=== PATIENT | male | born 1970 | race Caucasian/White ===

== ENCOUNTER 2020-06-06 10:14 | Outpatient (REF) | payer OTHER, SELFPAY ==
[2020-06-06 11:35] LABS: Alanine Aminotransferase 28 U/L (0-40); Albumin Level 4.2 g/dL (3.5-5.0); Alkaline Phosphatase 62 U/L (39-117); Anion Gap 10 (12-20); Aspartate Amino Transferase 29 U/L (5-37); Bilirubin Total 1.2 mg/dL (0.0-1.0); Blood Urea Nitrogen 15 mg/dL (9-16); Calcium 9.1 mg/dL (8.4-10.2); Carbon Dioxide 33 mmol/L (22-29); Chloride 103 mmol/L (96-108); Cholesterol 184 mg/dL; Estimated Glomerular Filt Rate > 60; Glucose Fasting 85 mg/dL (60-99); HDL Cholesterol 64 mg/dL; LDL Cholesterol Calculated 107 mg/dl; Potassium 4.8 mmol/l (3.3-5.1); Sodium 141 mmol/L (135-145); Total Protein 6.7 g/dL (6.5-8.0); Triglycerides 69 mg/dL
[2020-06-06 11:48] LABS: PSA,Total (Free>4and<10) 0.89 ng/mL (0.00-4.00); Vitamin D 25-OH Total 21.6 ng/mL (>30)
== END 2020-06-06 10:15 | disposition home or self-care (01) ==
LOC: HO.LAB 10:14
PROVIDERS: PCP Internal Medicine; Referring Provider Internal Medicine; Visit Provider Internal Medicine
DX: E78.00 Pure hypercholesterolemia, unspecified (principal); E55.9 Vitamin D deficiency, unspecified; Z20.828 Contact with and (suspected) exposure to other viral communicable diseases
CPT/HCPCS: 36415; 80053; 80061; 82306; 84153; 87635

== ENCOUNTER 2020-06-09 07:12 | Outpatient (REF) | payer OTHER, SELFPAY ==
[2020-06-09 08:10] LABS: COVID-19 Test Negative (Negative)
== END 2020-06-09 07:13 | disposition home or self-care (01) ==
LOC: HO.LAB 07:12
PROVIDERS: PCP Internal Medicine; Visit Provider Internal Medicine
DX: Z20.828 Contact with and (suspected) exposure to other viral communicable diseases (principal)
CPT/HCPCS: 36415; 87635

== ENCOUNTER → 2021-01-22 11:35 | Outpatient (REF) | payer OTHER, SELFPAY ==
--- NOTE | 2021-01-22 11:37 | CA_ITS ---
Transthoracic Echocardiogram Patient (Last, First, Middle): Js Givens, Gender: Male Date of : 1970 Age: 50 Procedure Date: 01/22/2021 Procedure Type: Transthoracic Echocardiogram Location: OP Height: 180.34 cm Weight: 74.39 kg BSA: 1.94 m2 Heart Rate: bpm BP: 104 / 70 mmHg Health Counselor: Referring MD: Kalen Mendosa MD Machinery Rigger: Kalen Mendosa MD Symptoms: R60.0 - Localized edema Study Quality: Good ECG Rhythm: Sinus Conclusions: - Essentially normal study Findings Left Ventricle Normal left ventricular size, thickness, and systolic function. The visually estimated ejection fraction is between 60-65%. Diastolic function is normal for age. Right Ventricle Normal right ventricular cavity size and systolic function. Atria Both atria are normal in size. There is no evidence of interatrial shunt. Aortic Valve Normal aortic valve structure and function. There is no aortic valve stenosis. There is no aortic valve regurgitation. Mitral Valve Normal mitral valve structure and function. There is trace mitral valve regurgitation. There is no mitral valve stenosis. Pulmonic Valve The pulmonic valve is likely normal. There is trace pulmonic valve regurgitation. Tricuspid Valve Normal tricuspid valve structure. There is trace tricuspid valve regurgitation. The right ventricular systolic pressure is normal. The right ventricular systolic pressure is 27 mmHg. Normal right atrial pressure. There is no evidence of pulmonary hypertension. Great Vessels All visible segments of the aorta are normal in size. The visualized portions of the pulmonary artery and branches are normal. Venous The inferior vena cava is normal in size and collapses greater than 50% with inspiration. Pericardium/Pleural There is no evidence of pericardial effusion. Prior Study Comparison No significant change compared to prior study dated: 07/27/2015. Measurements 2D Linear Measurements RVIDd: 2.55 RVIDd Index: 1.31 IVSd: 0.88 0.6-0.9/0.6-1.0 cm LVIDd: 5.12 3.9-5.3/4.2-5.9 cm LVIDd Index: 2.64 2.4-3.2/2.2-3.1 cm/m2 LVIDs: 3.22 2.0-3.6 cm LVPWd: 0.85 0.7-1.1 cm Ao Root: 2.60 2.1-3.5 cm LA Diam: 3.50 2.7-3.8/3.0-4.0 cm LAIDs Index: 1.80 1.5-2.3 cm/m2 LV Mass: 194.25 67-162/88-224 g LV Mass Index: 100.13 43-95/49-115 g/m2 LVOT Diam: 2.30 3.0+(-)1.3 cm 2D Systolic Function EF 4C: 59.00 >55% EF 2C: 73.30 >55% EF BiP: 67.10 >55% Mitral Valve MV Pk E: 0.53 MV PK A: 0.34 MV Decel Time: 393.00 E/A: 1.60 E'Lateral: 13.20 E'Medial: 9.79 E/E' Med: 5.40 E/E' Lat: 4.00 PHT: 115.00 MVA PHT: 1.91 Decel Hall: 1.34 Aortic Valve AoV Pk Paulo: 1.55 AoV Mn Paulo: 1.17 AoV VTI: 0.32 AoV Pk Grad: 10.00 Aov Mn Grad: 6.00 KONRAD Cont.VTI: 2.87 LVOT LVOT Pk Paulo: 1.14 LVOT Mn Paulo: 0.81 LVOT VTI: 0.22 LVOT Pk Grad: 5.00 LVOT Mn Grad: 3.00 LVOT Diam: 2.30 LVOT Area: 4.15 Diastolic Function MV Pk E: 0.53 MV Pk A: 0.34 E/A: 1.60 E'Medial: 9.79 E/E' Med: 5.40 E' Laterial: 13.20 E/E' Lat: 4.00 Tricuspid Valve TR Pk Paulo: 2.47 TR Pk Grad: 24.00 RA Press: 3.00 RVSP: 27.00 Great Vessels Aorta Ao Root-2D: 2.60 2.0-3.7 cm Ao Asc: 2.70 2.1-3.4 cm Ao Arch: 2.70 Updated in Other Vendor System with Status of Final Kalen Mendosa MD electronically signed on 01/22/2021 2:53:28 PM with status of Final
== END ==
LOC: HO.CARD 11:35
PROVIDERS: PCP Internal Medicine; Visit Provider Internal Medicine Cardiovascular Disease
DX: R60.0 Localized edema (principal)
CPT/HCPCS: 93306

== ENCOUNTER 2021-02-18 08:05 | Outpatient (REF) | payer OTHER, SELFPAY ==
[2021-02-18 09:24] LABS: Influenza A PCR NEGATIVE (Negative); Influenza B PCR NEGATIVE (Negative); Resp Syncy Virus RNA Qual PCR NEGATIVE (Negative); SARS COV2 PCR INHOUSE NEGATIVE (Negative)
== END 2021-02-18 08:06 | disposition home or self-care (01) ==
LOC: HO.LAB 08:05
PROVIDERS: PCP Internal Medicine; Visit Provider Internal Medicine
DX: Z20.822 Contact with and (suspected) exposure to COVID-19 (principal)
CPT/HCPCS: 0241U; 36415; C9803

== ENCOUNTER 2021-04-02 07:47 | Outpatient (REF) | payer OTHER, SELFPAY ==
[2021-04-02 08:48] LABS: Influenza A PCR NEGATIVE (Negative); Influenza B PCR NEGATIVE (Negative); Resp Syncy Virus RNA Qual PCR NEGATIVE (Negative); SARS COV2 PCR INHOUSE NEGATIVE (Negative)
== END 2021-04-02 07:48 | disposition home or self-care (01) ==
LOC: HO.LAB 07:47
PROVIDERS: PCP Internal Medicine; Visit Provider Internal Medicine
DX: Z20.822 Contact with and (suspected) exposure to COVID-19 (principal)
CPT/HCPCS: 0241U; 36415; C9803

== ENCOUNTER 2022-01-05 12:16 | Outpatient (REF) | payer OTHER, SELFPAY ==
[2022-01-05 12:43] LABS: COVID-19 Test Positive (Negative)
== END 2022-01-05 12:17 | disposition home or self-care (01) ==
LOC: HO.LAB 12:16
PROVIDERS: Visit Provider Internal Medicine
DX: Z20.822 Contact with and (suspected) exposure to COVID-19 (principal)
CPT/HCPCS: 87635; C9803

== ENCOUNTER 2022-03-11 07:16 | Outpatient (REF) | payer OTHER, SELFPAY ==
[2022-03-11 07:38] LABS: MANUAL DIFF FLAG NO
[2022-03-11 08:00] LABS: Basophils Percent Auto 0.6 % (0-2); Eosinophils Absolute Auto 0.1 X10*3/uL (0.0-0.4); Eosinophils Percent Auto 0.9 % (0-4); Hematocrit 42.2 % (42.0-52.0); Hemoglobin 13.5 g/dl (14.0-18.0); Imm Gran Abs Auto 0.01 X10*3/uL (0.00-0.03); Imm Gran Pct Auto 0.2 % (0.0-0.4); Lymphocytes Absolute Auto 2.2 X10*3/uL (1.2-4.9); Lymphocytes Percent Auto 40.9 % (20-40); Mean Corpuscular Hemoglobin 22.8 pg (27.0-33.0); Mean Corpuscular Volume 71.3 fL (80.0-98.0); Mean Platelet Volume 10.9 fL (9.4-12.4); Monocytes Absolute Auto 0.4 X10*3/uL (0.1-1.2); Monocytes Percent Auto 7.5 % (2-11); Neutrophils Absolute Auto 2.7 x10*3/uL (2.0-8.3); Neutrophils Percent Auto 49.9 % (45-73); Platelet Count 186 X10*3/uL (160-400); Red Blood Count 5.92 X10*6/uL (4.60-5.80); Red Cell Distribution Width 15.6 % (11.0-16.0); White Blood Count 5.3 X10*3/uL (4.8-10.8)
[2022-03-11 08:21] LABS: Alanine Aminotransferase 38 U/L (0-40); Albumin Level 4.2 g/dL (3.5-5.0); Alkaline Phosphatase 59 U/L (39-117); Anion Gap 11 (12-20); Aspartate Amino Transferase 33 U/L (5-37); Bilirubin Total 1.2 mg/dL (0.0-1.0); Blood Urea Nitrogen 20 mg/dL (9-16); Calcium 9.4 mg/dL (8.4-10.2); Carbon Dioxide 28 mmol/L (22-29); Chloride 105 mmol/L (96-108); Cholesterol 174 mg/dL; Estimated Glomerular Filt Rate > 60; Glucose Random 98 mg/dL (60-115); HDL Cholesterol 67 mg/dL; LDL Cholesterol Calculated 95 mg/dl; Potassium 5.1 mmol/L (3.3-5.1); Sodium 139 mmol/L (135-145); Total Protein 6.9 g/dL (6.5-8.0); Triglycerides 63 mg/dL
[2022-03-11 08:42] LABS: Free T4 (Free Thyroxine) 0.92 ng/dL (0.71-1.85); Thyroid Stimulating Hormone 1.44 uIU/mL (0.32-4.0); Vitamin D 25-OH Total 28.4 ng/mL (>30)
[2022-03-11 08:56] LABS: Folate 16.1 ng/mL (> or = 4.0); Vitamin B12 1557 pg/mL (200-900)
== END 2022-03-11 07:17 | disposition home or self-care (01) ==
LOC: HO.LAB 07:16
PROVIDERS: PCP Internal Medicine; Visit Provider Internal Medicine
DX: E78.00 Pure hypercholesterolemia, unspecified (principal)
CPT/HCPCS: 36415; 80053; 80061; 82306; 82607; 82746; 84439; 84443; 85025

== ENCOUNTER → 2022-09-26 14:14 | Outpatient (REF) | payer OTHER, SELFPAY ==
--- NOTE | 2022-09-26 14:13 | CA_ITS ---
Transthoracic Echocardiogram Patient (Last, First, Middle): Js Givens, Gender: Male Date of : 1970 Age: 52 Procedure Date: 09/26/2022 Procedure Type: Transthoracic Echocardiogram Location: OP Height: 180.34 cm Weight: 73.94 kg BSA: 1.93 m2 Heart Rate: bpm BP: 124 / 75 mmHg [place] Machine Operator Helper: TJ Referring MD: Angelia Sellers MD Symptoms: I48.91 - Unspecified atrial fibrillation Study Quality: Adequate ECG Rhythm: Sinus Conclusions: - The left ventricular systolic function is normal. The calculated ejection fraction is 64% by biplane method. - No obvious valvular pathology seen on this study. - The left atrium is mildly dilated. Findings Left Ventricle Normal left ventricular cavity size. There is normal left ventricular wall thickness. The left ventricular systolic function is normal. The calculated ejection fraction is 64% by biplane method. There is no evidence of regional wall motion abnormalities. Diastolic function is normal for age. LV peak GLS -19.8%. Right Ventricle Normal right ventricular cavity size and systolic function. Atria The left atrium is mildly dilated. LA ESV Index 35ml/m2. The right atrium is normal in size. Aortic Valve There is a normal trileaflet aortic valve. There is no aortic valve stenosis. There is no aortic valve regurgitation. Mitral Valve The mitral valve appears normal. There is trace mitral valve regurgitation. There is no mitral valve stenosis. Pulmonic Valve The pulmonic valve is likely normal. Tricuspid Valve Normal tricuspid valve structure. There is trace tricuspid valve regurgitation. There is no evidence of pulmonary hypertension. Great Vessels The asc aorta is normal in size. Venous The inferior vena cava is normal in size and collapses greater than 50% with inspiration. Pericardium/Pleural There is no evidence of pericardial effusion. Prior Study Comparison Changes noted compared to prior study dated: 01/22/2021. Slight increase in left atrial size. This change could also be technical. Recommendations, Care & Conclusions No obvious valvular pathology seen on this study. Measurements 2D Linear Measurements IVSd: 0.97 0.6-0.9/0.6-1.0 cm LVIDd: 4.82 3.9-5.3/4.2-5.9 cm LVIDd Index: 2.50 2.4-3.2/2.2-3.1 cm/m2 LVIDs: 3.33 2.0-3.6 cm LVPWd: 1.00 0.7-1.1 cm LA Diam: 3.30 2.7-3.8/3.0-4.0 cm LAIDs Index: 1.71 1.5-2.3 cm/m2 LV Mass: 209.54 67-162/88-224 g LV Mass Index: 108.57 43-95/49-115 g/m2 LVOT Diam: 2.20 3.0+(-)1.3 cm 2D Systolic Function EF 4C: 57.10 >55% EF 2C: 69.30 >55% EF BiP: 63.60 >55% Mitral Valve MV Pk E: 0.51 MV PK A: 0.38 MV Decel Time: 391.00 E/A: 1.40 E'Lateral: 12.00 E'Medial: 8.49 E/E' Med: 6.10 E/E' Lat: 4.30 PHT: 114.00 MVA PHT: 1.93 Decel Avery: 1.32 Aortic Valve AoV Pk Paulo: 1.23 AoV Mn Paulo: 0.77 AoV VTI: 0.26 AoV Pk Grad: 6.00 Aov Mn Grad: 3.00 KONRAD Cont.VTI: 2.88 LVOT LVOT Pk Paulo: 0.98 LVOT Mn Paulo: 0.56 LVOT VTI: 0.20 LVOT Pk Grad: 4.00 LVOT Mn Grad: 2.00 LVOT Diam: 2.20 LVOT Area: 3.80 Diastolic Function MV Pk E: 0.51 MV Pk A: 0.38 E/A: 1.40 E'Medial: 8.49 E/E' Med: 6.10 E' Laterial: 12.00 E/E' Lat: 4.30 Right Ventricle TAPSE (mm): 29.30 TVS' Paulo: 16.60 Tricuspid Valve TR Pk Paulo: 2.18 TR Pk Grad: 19.00 RA Press: 3.00 RVSP: 22.00 Great Vessels Aorta Sinus of Valsalva: 3.36 2.0-3.[address] [place]: 2.91 1.7-3.4 cm Ao Asc: 3.00 2.1-3.4 cm Updated in Other Vendor System with Status of Final Kelton Carmichael MD electronically signed on 09/26/2022 4:04:14 PM with status of Final
== END ==
LOC: HO.CARD 14:14
PROVIDERS: Visit Provider Internal Medicine
DX: I48.91 Unspecified atrial fibrillation (principal)
CPT/HCPCS: 93306; 93356

== ENCOUNTER → 2022-09-30 08:03 | Outpatient (REF) | payer OTHER, SELFPAY ==
--- NOTE | 2022-09-30 08:06 | CA_ITS ---
Acquisition Time: 2022-09-30 08:06:39 Total Exercise Time: 00:10:46 Test Indications: AFIB Medications: SEE CHART Protocol: KAILEE Max HR: 162 BPM 97% of Pred: 167 BPM Max BP: 182/070 mmHG Max Work Load: 12.9 METS Exercise stress test with exercise 10 min 46 sec of Kailee protocol, achieving 97% MPHR, 12.9 METs, without anginal symptoms, with isolated PVCs, with normotensive response to exercise, without EKG changes meeting criteria for ischemia. Test reviewed with Dr Carmichael. Referred By: Angelia Sellers Overread By: KULDEEP MONROY
== END ==
LOC: HO.CARD 08:03
PROVIDERS: Visit Provider Internal Medicine
DX: I48.91 Unspecified atrial fibrillation (principal)
CPT/HCPCS: 93017

== ENCOUNTER 2023-02-13 09:22 | Outpatient (REF) | payer OTHER, SELFPAY ==
--- NOTE | ~2023-02-13 | US_ITS ---
EXAMINATION: US ABDOMEN COMPLETE CLINICAL INFORMATION: R79.89 - Other specified abnormal findings of blood chemistry. COMPARISON: Ultrasound abdomen 02/07/2017. TECHNIQUE: Real-time imaging of the abdominal viscera. FINDINGS: PANCREAS: Pancreas is normal in size and contour and echogenicity. There is no pancreatic ductal distention or retroperitoneal effusion. ABDOMINAL AORTA: The proximal, mid, and distal segments are normal in caliber. INFERIOR VENA CAVA: Visualized portions are normal. LIVER: The liver is normal in size, contour, and with normal parenchymal echogenicity. There is a solitary 0.5 cm uniformly hyperechoic nodule central right lobe likely segment 6, not previously described. This is most likely a benign hemangioma and may be reassessed with targeted ultrasound in 6-12 months. There are no other hepatic parenchymal lesions. No intrahepatic biliary ductal dilatation. GALLBLADDER: Normal. The gallbladder is physiologically distended without evidence of stones, sludge, polyps, wall thickening or pericholecystic fluid. Negative sonographic Hodges's sign. COMMON BILE DUCT: Normal in caliber measuring 0.2 cm in diameter. No choledocholithiasis. RIGHT KIDNEY: Normal. No hydronephrosis. No renal calculi or focal parenchymal lesions. The kidney measures 10.8 cm in maximum dimension. LEFT KIDNEY: Normal. No hydronephrosis. No focal parenchymal lesions. The kidney measures 9.8 cm in maximum dimension. There are 2 specular echoes interpolar region under 3 mm possibly nonobstructing calculi. No posterior acoustic shadowing to confirm calculi. SPLEEN: Normal. The spleen measures 10.1 cm in maximum dimension. FREE FLUID: None. US/US abdomen complete IMPRESSION: -Probable small solitary hepatic hemangioma right hepatic lobe 0.5 cm, not previously described. This may be reassessed with ultrasound in 6-12 months. -No cholelithiasis or ductal dilatation. Normal pancreas. -Question tiny nonobstructing calculi interpolar left kidney. No hydronephrosis.
== END 2023-02-13 09:23 | disposition home or self-care (01) ==
LOC: HO.US 09:22
PROVIDERS: PCP Internal Medicine; Visit Provider Internal Medicine
DX: N20.0 Calculus of kidney (principal); R79.89 Other specified abnormal findings of blood chemistry
CPT/HCPCS: 76700

== ENCOUNTER 2023-02-13 11:30 | Day surgery (SDC) | payer OTHER, SELFPAY ==
--- NOTE | 2023-02-10 12:15 | HO.ANESPROP2 ---
Documented by User: Connie Preston NP 02/10/23 12:17 HPI - Anesthesia Eval Consult details Narrative: 52yo M for Colonoscopy [facility] Active Problems Active Problems: All Active Problems (Updated 02/06/23 @ 18:07 by Angelia Sellers MD) Renal calculi (Acute) Atrial fibrillation (Acute) Mediterranean anemia (Acute) Colon cancer screening (Acute) Leg edema (Acute) Annual physical exam (Acute) Hypercholesterolemia (Acute) Past Medical History Medical History (Updated 02/13/23 @ 10:46 by Angelia Sellers MD) Atrial fibrillation History of positive PPD History of renal calculi Hypercholesterolemia Mediterranean anemia Vitamin D deficiency Family History Family History (Updated 09/19/22 @ 15:04 by Angelia Sellers MD) Father Colon cancer Prostate cancer Skin cancer Hypertension Myocardial infarction Mother Chris's disease Maternal Grandfather Myocardial infarction Maternal Uncle Renal cancer Maternal Aunt Schizophrenia Surgical History Surgical History (Updated 02/13/23 @ 11:50 by Tari Schrader) H/O colonoscopy H/O lithotripsy History of adenoidectomy History of endoscopy Social History Social History (Updated 09/19/22 @ 15:05 by Angelia Sellers MD) Housing: House Alcohol intake: current Alcohol intake frequency: a few times a month Patient Tobacco Use Status: Never used Tobacco e-Cigarette/Vaping Use: Never Used Second Hand Smoke Exposure: No Use of substances other than those prescribed or required for medical reasons: No Are you DNR?: No Advance Directives: No Advance Directives Information Provided: Yes Current occupational status: employed Cognitive needs: No Hearing needs: No Vision needs: Yes Meds Allergies Allergy/AdvReac Type Severity Reaction Status Date / Time No Known Allergies Allergy Verified 02/13/23 11:51 [No Known Allergies*] Exam Exam Date and Time: February 10, 2023 1215 Assessment and Plan Assessment Anesthesia Assessment: Chart Reviewed Documented by User: Maria Zapata MD 02/13/23 13:58 [facility] Past Medical History Medical History (Updated 02/13/23 @ 10:46 by Angelia Sellers MD) Atrial fibrillation History of positive PPD History of renal calculi Hypercholesterolemia Mediterranean anemia Vitamin D deficiency Family History Family History (Updated 09/19/22 @ 15:04 by Angelia Sellers MD) Father Colon cancer Prostate cancer Skin cancer Hypertension Myocardial infarction Mother Chris's disease Maternal Grandfather Myocardial infarction Maternal Uncle Renal cancer Maternal Aunt Schizophrenia Family history of problems with anesthesia: No Surgical History Surgical History (Updated 02/13/23 @ 11:50 by Tari Schrader) H/O colonoscopy H/O lithotripsy History of adenoidectomy History of endoscopy History of Problems with Anesthesia: No Social History Social History (Updated 09/19/22 @ 15:05 by Angelia Sellers MD) Housing: House Alcohol intake: current Alcohol intake frequency: a few times a month Patient Tobacco Use Status: Never used Tobacco e-Cigarette/Vaping Use: Never Used Second Hand Smoke Exposure: No Use of substances other than those prescribed or required for medical reasons: No Are you DNR?: No Advance Directives: No Advance Directives Information Provided: Yes Current occupational status: employed Cognitive needs: No Hearing needs: No Vision needs: Yes Meds Allergies Allergy/AdvReac Type Severity Reaction Status Date / Time No Known Allergies Allergy Verified 02/13/23 11:51 [No Known Allergies*] Exam Airway Mallampati Class: I TM Dist: >3cm Neck ROM: Full Heart: rr Lungs: cta Assessment and Plan Assessment Anesthesia Assessment: Anesthesia Plan Discussed Final Anesthetic Review Family History of Problems with Anesthesia: No History of Problems with Anesthesia: No NPO: Yes ASA Class: II Final Preanesthetic Review: No Changes in Pt Med Stat, Meds/Allgs Chart Reviewed and Consent Obtained/Reviewed Patient Risk: Low Procedure Risk: Low Anesthetic Plan Anesthetic Plan: MAC: Disposition: Standard PACU
[2023-02-13 11:42] VITALS: BMI 22.3
[2023-02-13 11:48] VITALS: BP 122/80; PULSE 48; RESP 16; TEMP 36.8; O2SAT 100
[2023-02-13] MEDS: Lactated Ringers 1,000 ML 100 ML IVCONT (12:02)
[2023-02-13 14:46] VITALS: BP 92/53; PULSE 56; RESP 16; TEMP 36.1; O2SAT 97
--- NOTE | 2023-02-13 14:48 | PM.OP ---
Brief Operative Note Date of Service: 02/13/23 Pre-op diagnosis: Screening, Family history of colon cancer Post-op diagnosis: other (Mild sigmoid diverticulosis, small internal hemorrhoids) Procedure: Colonoscopy to the cecum Surgeon: Hamilton Basilio Anesthesia: MAC Was an Demographic Analyst used for this Procedure?: No Estimated blood loss (mL): 0 Pathology: none sent Condition: stable Disposition: PACU
[2023-02-13 15:01] VITALS: BP 104/68; PULSE 48; RESP 14; O2SAT 98
[2023-02-13 15:16] VITALS: BP 127/80; PULSE 52; RESP 16; O2SAT 100
[2023-02-13 15:30] VITALS: BP 124/83; PULSE 52; RESP 16; O2SAT 100
[2023-02-13 15:40] VITALS: PULSE 54; RESP 16; TEMP 36.5; O2SAT 100
--- NOTE | 2023-02-14 01:00 | OP_ITS ---
DATE OF SERVICE: 02/13/2023 SURGEON: Hamilton Basilio MD INDICATIONS: The patient presents for evaluation of colorectal cancer screening and family history of colon cancer. Full consent has been obtained from him for this, including risks of bleeding and perforation. PREOPERATIVE DIAGNOSIS: POSTOPERATIVE DIAGNOSIS: PROCEDURE PERFORMED: Colonoscopy to the cecum. ESTIMATED BLOOD LOSS: COMPLICATIONS: ANESTHESIA: Monitored anesthesia care. ASSISTANTS: SPECIMENS: PREOPERATIVE DIAGNOSES: Colorectal cancer screening and family history of colon cancer. POSTOPERATIVE DIAGNOSES: Colorectal cancer screening and family history of colon cancer, mild sigmoid diverticulosis, small internal hemorrhoids. DESCRIPTION OF PROCEDURE: The patient was placed in the left lateral decubitus position. The digital rectal exam revealed no abnormalities. The Olympus video pediatric colonoscope was entered into the rectum and advanced easily to the cecum. Once in the cecum, after copious irrigation and suctioning, the cecum was well visualized and appeared normal. The appendiceal orifice was visualized. The ileocecal valve appeared normal. There was transillumination of light deep in the right lower quadrant. The scope was then slowly withdrawn assessing all mucosal surfaces carefully. Preparation throughout the colon did become very good after a lot of irrigation and suctioning due to some retained liquid stool. However, once the irrigation and suctioning was completed, visualization became very good, and I did not visualize any sign of polyps, colitis, nor angiodysplasias. There were occasional diverticulae noted in the sigmoid colon. In the rectum, the scope was retroflexed visualizing internal hemorrhoids, but no other pathology. The rectal mucosa appeared normal. The scope was straightened and withdrawn from the patient. He tolerated the procedure well and was returned to the recovery area in stable condition. IMPRESSION: 1. Mild diverticulosis. 2. Small internal hemorrhoids. PLAN: Given his family history, I would recommend a repeat colonoscopy in 5 years. He will otherwise see me on a p.r.n. basis. MD MEDARDO Vang/MIO / [id number] MTDD
== END 2023-02-13 15:50 | disposition home or self-care (01) ==
PROVIDERS: PCP Internal Medicine; Visit Provider Internal Medicine
PROC: 0DJD8ZZ Inspection of Lower Intestinal Tract, Via Natural or Artificial Opening Endoscopic (ICD-10-PCS; CPT 45378; principal; 2023-02-13 12:40)
DX: Z12.11 Encounter for screening for malignant neoplasm of colon (principal); Z80.0 Family history of malignant neoplasm of digestive organs; K57.30 Diverticulosis of large intestine without perforation or abscess without bleeding; K64.8 Other hemorrhoids; E78.5 Hyperlipidemia, unspecified; D56.9 Thalassemia, unspecified; Z87.442 Personal history of urinary calculi
CPT/HCPCS: 45378; J2250

== ENCOUNTER 2023-09-25 15:05 | Outpatient (AMB) | payer OTHER, SELFPAY ==
[2023-09-25 15:06] VITALS: BP 138/80; PULSE 46; O2SAT 100; BMI 23.4
--- NOTE | 2023-09-25 15:06 | MHC.PC.OV ---
Vital Signs 09/25/23 15:06 Height 5 ft 11 in Weight 168 lb BMI 23.4 BP 138/80 Blood Pressure Location Lt brachial Position Sitting Pulse 46 L Pulse Source Pulse Oximeter Pulse Oximetry (%) 100 Oxygen Delivery Method Room Air Intake Visit Reasons: Annual exam Intake Note: Patient is here today for a physical. Consolidation Accountant Required: No Allergies No Known Allergies [No Known Allergies*] Allergy (Verified 09/25/23 15:07) Medication List - Last Reconciled 09/25/23 by Angelia Sellers MD Tobacco use date assessed: 09/25/23 Dental Screening Dental Screen Date: 09/25/23 Did you have a dental visit in the last 12 months?: No Did you have a dental problem in the last 6 months where you did not have access to dental care?: No HPI Annual exam HPI Details 52-year-old male with hypercholesterolemia atrial fibrillation coming in for physical exam last seen in September 2022. Patient is here for physical exam. Review of the notes colonoscopy done February 2023 diagnosis of mild diverticulosis with internal hemorrhoids. With family history advised colonoscopy repeat in 5 years ultrasound of the abdomen done in February 2023 showing small solitary hepatic hemangioma 0.5 cm advised reassessing in 6-12 months. There is a question of left renal calculi. Patient also had a stress test done in September 2022 without EKG changes echocardiogram done September 2022 The left ventricular systolic function is normal. The calculated ejection fraction is 64% by biplane method. - No obvious valvular pathology seen on this study. - The left atrium is mildly dilated. Otherwise patient has been active with no chest pains no palpitations. Aware and not surprised about the renal calculi as the patient has low oral fluid intake which the patient is correcting. Patient has not been taking the cholesterol medication and vitamin-D and would like to have the blood work done 1st. Patient also has some facial discoloration(hyper pigmentation 1 cm on the bilateral Eye area) in which patient will just call Dermatology. [facility] Medical History (Updated 09/25/23 @ 15:17 by Angelia Sellers MD) Mediterranean anemia History of positive PPD History of renal calculi Atrial fibrillation Hypercholesterolemia Vitamin D deficiency Surgical History (Updated 02/13/23 @ 11:50 by Tari Schrader) History of endoscopy H/O colonoscopy H/O lithotripsy History of adenoidectomy Family History (Updated 09/19/22 @ 15:04 by Angelia Sellers MD) Father Colon cancer Prostate cancer Skin cancer Hypertension Myocardial infarction Mother Chris's disease Maternal Grandfather Myocardial infarction Maternal Uncle Renal cancer Maternal Aunt Schizophrenia Social History (Updated 09/25/23 @ 15:24 by Angelia Sellers MD) Housing: House Alcohol intake: current Alcohol intake frequency: a few times a month Comment: once a month, 2 glasses of wine Patient Tobacco Use Status: Never used Tobacco e-Cigarette/Vaping Use: Never Used Second Hand Smoke Exposure: No Current occupational status: employed Cognitive needs: No Hearing needs: No Vision needs: Yes Questionnaire PHQ-9 Over the last 2 weeks, how often have you been bothered by any of the following problems? 1. Little interest or pleasure in doing things: not at all 2. Feeling down, depressed, or hopeless: not at all 3. Trouble falling or staying asleep, or sleeping too much: not at all 4. Feeling tired or having little energy: not at all 5. Poor appetite or overeating: not at all 6. Feeling bad about yourself - or that you are a failure or have let yourself or your family down: not at all 7. Trouble concentrating on things, such as reading the newspaper or watching television: not at all 8. Moving or speaking so slowly that other people could have noticed. Or the opposite - being so fidgety or restless that you have been moving around a lot more than usual: not at all 9. Thoughts that you would be better off or of hurting yourself in some way: not at all Total score: 0 Depression Screening Interpretation: Negative Depression Screening Done: Yes Source: Developed by Drs. Hamilton Clarke, Fabiana Junior, Brigido Mcdonnell and colleagues, with an educational [place] from [employer]. Thrive Questionnaire Date Thrive assessed: 09/25/23 I am a: Patient What is your living situation today?: I have a steady place to live Within the past 12 months, did the food you bought not last and you didn't have the money to get more?: Never true Within the past 12 months, did you worry whether your food would run out before you got money to buy more?: Never true Do you have trouble paying for medicines?: No Do you have trouble getting transportation to medical appointments?: No Do you have trouble paying your heating and electricity bill?: No Do you have trouble taking care of your child, family member or friend?: No Do you have trouble with day-to-day activities such as bathing, preparing meals, shopping, managing finances, etc.?: No Are you currently unemployed and looking for a job?: No Are you interested in more education?: No THRIVE Score: 0 AUDIT C Alcohol Use Questionnaire (AUDIT-C) 1. How often do you have a drink containing alcohol?: 2-4 times a month 2. How many drinks containing alcohol do you have on a typical day when you are drinking?: 1 or 2 3. How often do you have six or more drinks on one occasion?: Never Total Score: 2 ALBERT-7 AMB Questionnaire ALBERT-7 Date ALBERT - 7 assessed: 09/25/23 Feeling nervous, anxious, or on edge: 0 = Not at all Not being able to stop or control worryin = Not at all Worrying too much about different things: 0 = Not at all Trouble relaxin = Not at all Being so restless that it is hard to sit still: 0 = Not at all Becoming easily annoyed or irritable: 0 = Not at all Feeling afraid as if something awful might happen: 0 = Not at all Total ALBERT-7 score (0-4 normal; 5-9 mild; 10-14 moderate; 15-21 severe): 0 Source: Developed by Drs. Hamilton Clarke, Fabiana Junior, Brigido Mcdonnell and colleagues, with an educational [place] from [employer]. Review of Systems Const Denies poor appetite and Denies weakness Eyes Denies no additional complaints ENT Reports Normal hearing present, Denies dizziness, Denies nasal congestion, Denies tinnitus and Denies sore throat Card Denies chest pain, Denies syncope, Denies rapid heart rate and Denies dyspnea Resp Denies cough and Denies dyspnea GI Denies change in stool character, Reports constipation, Denies diarrhea, Denies nausea and Denies vomiting Denies dysuria and Denies urinary frequency Neuro Reports Normal hearing present, Denies confusion, Denies dizziness, Denies syncope and Denies weakness Psych Denies confusion Physical exam (Primary Care) Vital Signs: Last Vital Signs Pulse 46 L 09/25/23 15:06 BP 138/80 09/25/23 15:06 Pulse Ox 100 09/25/23 15:06 Oxygen Delivery Method Room Air 09/25/23 15:06 BMI result Body Mass Index 23.4 Tobacco/Smoking Status: Tobacco use Status Tobacco use date assessed 09/25/23 09/25/23 15:08 Patient Tobacco Use Status Never used Tobacco 09/25/23 15:24 e-Cigarette/Vaping Use Never Used 09/25/23 15:24 PHQ-9: PHQ-9 Score PHQ-9: Total score 0 09/25/23 15:18 Depression Screening Interpretation: Negative Thrive Assessment: Date of Thrive Assessment Date Thrive assessed 09/25/23 09/25/23 15:08 Const General: No confusion Orientation/consciousness: No confusion HENMT Head: Yes normocephalic Ears: external ears normal and TM's normal bilaterally Face and sinus: Yes normal facial exam Mouth: moist mucous membranes Throat: Yes tonsils normal Eyes Conjunctivae: conjunctivae normal Pupils: Equal, round and reactive pupils present and Pupil accommodation reflex normal Direct Ophthalmoscopy: normal light reflex Neck Neck: No lymphadenopathy Thyroid: Thyroid normal Chest Chest palpation & inspection: normal inspection of the chest Resp Effort & Inspection: normal respiratory effort and no audible wheezes Auscultation: clear to auscultation bilaterally, no crackles, no wheezes and lung sounds not diminished Cardio Rate: regular rate Rhythm: regular rhythm Peripheral pulses: radial pulses present and dorsalis pedis present GI Other: Colonoscopy February 2023 Palpation (GI): no masses Auscultation: normal bowel sounds and normoactive bowel sounds Rectal Exam - Male: Yes deferred Skin General skin exam: no rashes or lesions noted Rashes: no rashes Neuro General: No confusion Cranial nerves: Yes Equal, round and reactive pupils present and Yes Normal hearing present Cognition (Neuro): normal cognition Gait exam (Neuro): Normal gait present Motor exam (neuro): 5/5 motor strength present throughout Deep tendon reflexes (DTR's): Right brachioradialis reflex intensity grade: 2+, Left brachioradialis reflex intensity grade: 2+, Right patellar reflex intensity grade: 2+ and Left patellar reflex intensity grade: 2+ Extrem General: No edema Office Procedures Flu Questionnaire Does the patient have a severe egg allergy?: No Does the patient have severe life threatening allergies?: No Does the patient have a fever or illness today?: No Has the patient ever had Guillain-[place] Syndrome?: No Has the patient ever had any past reaction to a flu shot?: No Immunizations flu vacc [id number] 6mos up(PF) 60 mcg(15 mcgx4)/0.5 mL IM syringe Performing Provider: Angelia Sellers MD [facility] Administered by: HAWA Kahn on 09/25/23 15:37 Dose Route Admin Location Dispensed Lot Number Expiration Date NDC Contour Band Saw Operator Vertical 0.5 mL IM Left Deltoid 0.5 mL [id number] 03/03/24 [id number] [employer] VIS Given Date VIS Provided VIS Publication Date 09/25/23 Single Vaccine 21 Eligibility Eligibility Date Funding Source Not [facility] Eligible 09/25/23 Private Assessment and Plan Assessment & Plan (1) Annual physical exam: Code(s): Z00.00 - Encounter for general adult medical examination without abnormal findings (2) Atrial fibrillation: Comment: 2004 with cardioversion Code(s): I48.91 - Unspecified atrial fibrillation Plan: Continue to follow-up (3) Hypercholesterolemia: Code(s): E78.00 - Pure hypercholesterolemia, unspecified Plan: Avoid fried foods, chicken skin, eggs, butter margarine, pastries and meat. Be it pork or beef they have a lot of cholesterol LDL goal of less than 130 and triglyceride of less than 150. Patient on atorvastatin 10 mg once a day (4) Renal calculi: Comment: Februaryrobable small solitary hepatic hemangioma right hepatic lobe 0.5 cm, not previously described. This may be reassessed with ultrasound in 6-12 months. -No cholelithiasis or ductal dilatation. Normal pancreas. -Question tiny nonobstructing calculi interpolar left kidney. No hydronephrosis. Code(s): N20.0 - Calculus of kidney Plan: Question of tiny renal calculi left will request for follow-up ultrasound (5) Hepatic hemangioma: Comment: Februaryrobable small solitary hepatic hemangioma right hepatic lobe 0.5 cm, not previously described. This may be reassessed with ultrasound in 6-12 months. -No cholelithiasis or ductal dilatation. Normal pancreas. -Question tiny nonobstructing calculi interpolar left kidney. No hydronephrosis. Code(s): D18.03 - Hemangioma of intra-abdominal structures Plan: Follow-up ultrasound in this time Orders: Orders Vitamin D 25-OH Total Today D56.9 - Thalassemia, unspecified Thyroglobulin & Antibody Today I48.91 - Unspecified atrial fibrillation Thyroid Peroxidase Antibodies Today I48.91 - Unspecified atrial fibrillation Influenza [id number] Immunization Today Z23 - Encounter for immunization Coding Level of Care Code Est Pt Prev Care 40-64y([id number]) Diagnoses Annual physical exam Z00.00 Atrial fibrillation I48.91 Hypercholesterolemia E78.00 Renal calculi N20.0 Hepatic hemangioma D18.03
== END 2023-09-25 15:45 | disposition home or self-care (01) ==
PROVIDERS: Visit Provider Internal Medicine
DX: Z23 Encounter for immunization (principal); Z00.00 Encounter for general adult medical examination without abnormal findings; I48.91 Unspecified atrial fibrillation; E78.00 Pure hypercholesterolemia, unspecified; N20.0 Calculus of kidney; D18.03 Hemangioma of intra-abdominal structures
CPT/HCPCS: 90471; 90686; 99396

== ENCOUNTER → 2024-07-01 15:12 | Outpatient (BNVA) | payer OTHER, SELFPAY | PROVIDERS: PCP Internal Medicine; Visit Provider Psychiatry & Neurology Psychiatry ==

== ENCOUNTER 2024-09-30 13:52 | Outpatient (AMB) | payer OTHER, SELFPAY ==
--- NOTE | 2024-09-30 13:55 | A.OFFPC_ITS ---
Vital Signs 09/30/24 13:58 Height 5 ft 11 in Weight 170 lb 2 oz BMI 23.7 BP 110/76 Blood Pressure Location Lt brachial Position Sitting Pulse 55 Pulse Source Pulse Oximeter Temp 97.1 F Temp Source Skin Pulse Oximetry (%) 98 Oxygen Delivery Method Room Air Intake Visit Reasons: pe Intake Note: Patient is here today for a physical. Pleater Required: No Rubber Goods Inspector Tester: Not Required per policy Accompanied by: Self / Same As Patient Allergies No Known Allergies [No Known Allergies*] Allergy (Verified 09/30/24 13:58) Medication List - Last Reconciled 09/30/24 by Angeila Sellers MD No Known Home Meds Tobacco use date assessed: 09/30/24 Dental Screening Dental Screen Date: 09/30/24 Did you have a dental visit in the last 12 months?: Yes Did you have a dental problem in the last 6 months where you did not have access to dental care?: No Was dental information given to patient?: Patient has dentist HPI pe HPI Details The patient is a 54-year-old male presenting with concern regarding his ongoing health maintenance. The patient is not currently using atorvastatin as previously discussed, indicating periodic past usage but currently none for several months. He desires to reassess his need for this medication via blood work due to elapsed time since the last monitoring. A notable skin lesion was recently excised by dermatology, identified as precancerous but non-malignant, confirming the need for a follow-up excision for precautionary resection. The patient attributes excessive sun exposure without sunscreen to this dermatological concern and plans to adopt preventive measures. A family history of basal cell carcinoma from his father reinforces this preventive approach. Regarding his history of atrial fibrillation, the patient reports no recent episodes of palpitations, attributing improvement to weight loss and regular exercise. He acknowledges a previous BMI of 30, fluctuated down with improved diet and lifestyle habits. He has maintained good control through regular monitoring and denies any dizziness, shortness of breath, or worsening symptoms. The patient similarly reports a history of kidney stones, with the last occurrence self-resolving at home. He attributes increased hydration to prevention yet acknowledges past frequent recurrences. - Routine blood work requested due to ce ssation of atorvastatin - Encouraged adoption and consistent fermin lication of sunscreen to mitigate further dermatological risks - Patient monitors heart rhythm using a smartwatch; blood pressure maintained through healthy lifestyle - He stays active with frequent exercise including daily treadmill use and competitive tennis - Consumes alcohol sparingly, approximat preeti once a month - Updated colonoscopy completed February - Suggested repeated abdominal ultrasoun d due to past mild findings - Completed eye exam indicated no ongoin g vision issues, prior concerns of early glaucoma unsubstantiated - Engages in regular physical exercise, including treadmill and tennis - Consumes alcohol infrequently, once mo nthly - Reports a diet lean in milk, otherwise mitigated sugary drinks, prefers water - Active lifestyle includes hiking and u se of protective clothing like hats - Maintains employment necessitating tel emedicine, reducing patient contact - Cardiovascular: Denies dizziness, palp itations, shortness of breath - Respiratory: Denies shortness of breat h - Gastrointestinal: Denies difficulties in swallowing; reports normal bowel movements - Neurological: Denies dizziness, loss o f consciousness - Genitourinary: Denies dysuria, nocturi a - Musculoskeletal: Regular exercise with out reported discomfort - Abdominal ultrasound previously reveal ed mild dilation and presence of kidney stones - Ophthalmology assessment indicated nor mal results, without current indication of glaucoma PFSH Medical History (Updated 09/30/24 @ 14:07 by Angelia Sellers MD) Mediterranean anemia History of positive PPD History of renal calculi Atrial fibrillation Hypercholesterolemia Vitamin D deficiency Surgical History History of endoscopy H/O colonoscopy H/O lithotripsy History of adenoidectomy Family History (Updated 09/30/24 @ 13:57 by HAWA Arauz) Father Colon cancer Prostate cancer Skin cancer Hypertension Myocardial infarction Mother Chris's disease Maternal Grandfather Myocardial infarction Maternal Uncle Renal cancer Maternal Aunt Schizophrenia Other Mental health disorder Social History Housing: House Alcohol intake: current Alcohol intake frequency: a few times a month Comment: once a month, 2 glasses of wine Patient Tobacco Use Status: Never used Tobacco e-Cigarette/Vaping Use: Never Used Second Hand Smoke Exposure: No service: No Current occupational status: employed Cognitive needs: No Hearing needs: No Vision needs: Yes (Glasses) Questionnaire PHQ-9 Over the last 2 weeks, how often have you been bothered by any of the following problems? 1. Little interest or pleasure in doing things: not at all 2. Feeling down, depressed, or hopeless: not at all 3. Trouble falling or staying asleep, or sleeping too much: not at all 4. Feeling tired or having little energy: not at all 5. Poor appetite or overeating: not at all 6. Feeling bad about yourself - or that you are a failure or have let yourself or your family down: not at all 7. Trouble concentrating on things, such as reading the newspaper or watching television: not at all 8. Moving or speaking so slowly that other people could have noticed. Or the opposite - being so fidgety or restless that you have been moving around a lot more than usual: not at all 9. Thoughts that you would be better off or of hurting yourself in some way: not at all Total score: 0 Depression Screening Interpretation: Negative Depression Screening Done: Yes Source: Developed by Drs. Hamilton Clarke, Fabiana Junior, Brigido Mcdonnell and colleagues, with an educational brooklyn from [employer]. Thrive Questionnaire Date Thrive assessed: 09/28/24 I am a: Patient What is your living situation today?: I have a steady place to live Within the past 12 months, did the food you bought not last and you didn't have the money to get more?: Never true Within the past 12 months, did you worry whether your food would run out before you got money to buy more?: Never true Do you have trouble paying for medicines?: No Do you have trouble getting transportation to medical appointments?: No Do you have trouble paying your heating and electricity bill?: No Do you have trouble taking care of your child, family member or friend?: No Do you have trouble with day-to-day activities such as bathing, preparing meals, shopping, managing finances, etc.?: No Are you currently unemployed and looking for a job?: No Are you interested in more education?: No Please select the resources that you would like help with: None Currently or been in a relationship where the following occur: No concerns reported THRIVE Score: 0 AUDIT C Alcohol Use Questionnaire (AUDIT-C) 1. How often do you have a drink containing alcohol?: Monthly or less 2. How many drinks containing alcohol do you have on a typical day when you are drinking?: 1 or 2 3. How often do you have six or more drinks on one occasion?: Never Total Score: 1 ALBERT-7 AMB Questionnaire ALBERT-7 Date ALBERT - 7 assessed: 09/30/24 Feeling nervous, anxious, or on edge: 0 = Not at all Not being able to stop or control worryin = Not at all Worrying too much about different things: 0 = Not at all Trouble relaxin = Not at all Being so restless that it is hard to sit still: 0 = Not at all Becoming easily annoyed or irritable: 0 = Not at all Feeling afraid as if something awful might happen: 0 = Not at all Total ALBERT-7 score (0-4 normal; 5-9 mild; 10-14 moderate; 15-21 severe): 0 Source: Developed by Drs. Hamilton Clarke, Fabiana Junior, Brigido Mcdonnell and colleagues, with an educational brooklyn from [employer]. Review of Systems Const Denies poor appetite and Denies weakness Eyes Denies no additional complaints ENT Reports Normal hearing present, Denies dizziness, Denies nasal congestion, Denies tinnitus and Denies sore throat Card Denies chest pain, Denies syncope, Denies rapid heart rate and Denies dyspnea Resp Denies cough and Denies dyspnea GI Denies change in stool character, Reports constipation, Denies diarrhea, Denies nausea and Denies vomiting Denies dysuria and Denies urinary frequency Neuro Reports Normal hearing present, Denies confusion, Denies dizziness, Denies syncope and Denies weakness Psych Denies confusion Physical exam (Primary Care) Vital Signs: Last Vital Signs Temp 97.1 F 09/30/24 13:58 Pulse 55 09/30/24 13:58 BP 110/76 09/30/24 13:58 Pulse Ox 98 09/30/24 13:58 Oxygen Delivery Method Room Air 09/30/24 13:58 BMI result Body Mass Index 23.7 Tobacco/Smoking Status: Tobacco use Status Tobacco use date assessed 09/30/24 09/30/24 14:01 Patient Tobacco Use Status Never used Tobacco 09/30/24 14:01 e-Cigarette/Vaping Use Never Used 09/30/24 14:01 PHQ-9: PHQ-9 Score PHQ-9: Total score 0 09/30/24 14:01 Depression Screening Interpretation: Negative Thrive Assessment: Date of Thrive Assessment Date Thrive assessed 09/28/24 09/30/24 14:01 Currently or been in a relationship where the following occur: No concerns reported Const General: No confusion Orientation/consciousness: No confusion HENMT Head: Yes normocephalic Ears: external ears normal and TM's normal bilaterally Face and sinus: Yes normal facial exam Mouth: moist mucous membranes Throat: Yes tonsils normal Eyes Conjunctivae: conjunctivae normal Pupils: Equal, round and reactive pupils present and Pupil accommodation reflex normal Direct Ophthalmoscopy: normal light reflex Neck Neck: No lymphadenopathy Thyroid: Thyroid normal Chest Chest palpation & inspection: normal inspection of the chest Resp Effort & Inspection: normal respiratory effort and no audible wheezes Auscultation: clear to auscultation bilaterally, no crackles, no wheezes and lung sounds not diminished Cardio Rate: regular rate Rhythm: regular rhythm Peripheral pulses: radial pulses present and dorsalis pedis present GI Palpation (GI): no masses Auscultation: normal bowel sounds and normoactive bowel sounds Rectal Exam - Male: Yes deferred Skin General skin exam: no rashes or lesions noted Rashes: no rashes Neuro General: No confusion Cranial nerves: Yes Equal, round and reactive pupils present and Yes Normal hearing present Cognition (Neuro): normal cognition Gait exam (Neuro): Normal gait present Motor exam (neuro): 5/5 motor strength present throughout Deep tendon reflexes (DTR's): Right brachioradialis reflex intensity grade: 2+, Left brachioradialis reflex intensity grade: 2+, Right patellar reflex intensity grade: 2+ and Left patellar reflex intensity grade: 2+ Extrem General: No edema Coding Level of Care Code Est Pt Prev Care 40-64y(53675) Diagnoses Annual physical exam Z00.00 Atrial fibrillation I48.91 Mediterranean anemia D56.9 Hypercholesterolemia E78.00 Hepatic hemangioma D18.03 Assessment & Plan Assessment & Plan (1) Annual physical exam: Code(s): Z00.00 - Encounter for general adult medical examination without abnormal findings Category: Medical (2) Atrial fibrillation: Comment: 2004 with cardioversion Code(s): I48.91 - Unspecified atrial fibrillation Category: Medical (3) Mediterranean anemia: Code(s): D56.9 - Thalassemia, unspecified Category: Medical (4) Hypercholesterolemia: Code(s): E78.00 - Pure hypercholesterolemia, unspecified Category: Medical (5) Hepatic hemangioma: Comment: Februaryrobable small solitary hepatic hemangioma right hepatic lobe 0.5 cm, not previously described. This may be reassessed with ultrasound in 6-12 months. -No cholelithiasis or ductal dilatation. Normal pancreas. -Question tiny nonobstructing calculi interpolar left kidney. No hydronephrosis. Code(s): D18.03 - Hemangioma of intra-abdominal structures Category: Medical Plan - Order and review blood work to assess atorvastatin necessity - Coordinate repeat excision of previously identified precancerous lesion - Counseling on effective sun protection measures and familial cancer risk - Continuation of monitoring atrial fibrillation with wearable technology - Encouragement to sustain lifestyle changes contributing to heart health - Advise adequate hydration to prevent kidney stones recurrence - Arrange repeat abdominal ultrasound as a precautionary measure During our session, I reminded the patient about the importance of preventive care, including the use of sunscreen considering his family history of basal cell carcinoma and recent precancerous skin lesion excision. We agreed to continue monitoring the status of his atrial fibrillation using wearable technology while maintaining his active lifestyle to support cardiovascular health. Concerns about kidney stones were addressed, with instruction to uphold increased water intake. Further diagnostic blood work will be performed to evaluate the necessity of atorvastatin therapy. A follow-up ultrasound was arranged due to prior recommendations and findings. The patient was guided on episodic colorectal screening protocols consistent with his history. - Continue using sunscreen daily, especially during prolonged sun exposure - Maintain current exercise routine and a healthy diet - Monitor heart rhythm using smartwatch for any irregular episodes - Keep hydrated to help prevent further kidney stone formation - Follow the scheduled ultrasound and follow-up blood work appointments - Observe and report any new or unusual skin changes promptly - Discuss any sudden changes in symptoms or discomfort during the next medical review Orders: Orders US abdomen complete Today D18.03 - Hemangioma of intra-abdominal structures, R79.89 - Other specified abnormal findings of blood chemistry Complete Blood Count Auto Diff Today E78.00 - Pure hypercholesterolemia, unspecified Free T4 (Free Thyroxine) Today E78.00 - Pure hypercholesterolemia, unspecified Lipid Panel Today E78.00 - Pure hypercholesterolemia, unspecified Prostate Specific Antigen Scr Today E78.00 - Pure hypercholesterolemia, unspecified Comprehensive Met. Panel Today E78.00 - Pure hypercholesterolemia, unspecified Thyroid Stimulating Hormone Today E78.00 - Pure hypercholesterolemia, unspecified Vitamin B12 and Folate Today E78.00 - Pure hypercholesterolemia, unspecified
[2024-09-30 13:58] VITALS: BP 110/76; PULSE 55; TEMP 36.2; O2SAT 98; BMI 23.7
--- OUTSIDE RECORDS SUMMARY | 2024-09-30 18:29 | XMS_ITS | Clinical Summary ---
Author Organization [facility] Address [address] [place] [address] Care Team Providers Care Beater Room Supervisor Name Role Phone Unavailable Primary Care Provider Unavailabl e Social History Tobacco Use Types Packs/Day Years Used Date Smoking Tobacco: Never Assessed Sex and Gender Information Value Date Recorded Sex Assigned at Not on file Gender Identity Not on file Sexual Orientation Not on file Plan of Treatment Not on file
--- OUTSIDE RECORDS SUMMARY | 2024-09-30 18:29 | XMS_ITS | Clinical Summary ---
Author Organization [facility] Address [address] [place] [address] Care Team Providers Care Tugboat Operator Name Role Phone Unavailable Primary Care Provider Unavailabl e Allergies No known active allergies Medications No known medications Social History Tobacco Use Types Packs/Day Years Used Date Smoking Tobacco: Never Smokeless Tobacco: Never Alcohol Use Standard Drinks/Week Comments Never 0 (1 standard drink = 0.6 oz pur e alcohol) AUDIT-C Answer Date Recorded Q1: How often do you have a drink containing alc ohol? Never 06/21/2020 Q2: How many drinks containi ng alcohol do you have on a typical day when you are drinking? Not asked 06/21/2020 Q3: How often do you have six or more drinks on one occasion? Never 06/21/2020 Sex and Gender Information Value Date Recorded Sex Assigned at Not on file Gender Identity Not on file Sexual Orientation Not on file Last Filed Vital Signs Vital Sign Reading Time Taken Comments Blood Pressure 127/77 06/21/2020 9:57 AM EDT Pulse 60 06/21/2020 9:57 AM EDT Temperature 36.5 ??C (97.7 ??F) 06/21/2020 9:57 AM ED T Respiratory Rate 16 06/21/2020 9:57 AM EDT Oxygen Saturation 99% 06/21/2020 9:57 AM EDT Inhaled Oxygen Concentration - - Weight 73.5 kg (162 lb) 06/21/2020 9:57 AM EDT Height 180.3 cm (5' 11 ) 06/21/2020 9:57 AM EDT Body Mass Index 22.59 06/21/2020 9:57 AM EDT Plan of Treatment Health Maintenance Due Date Last Done Comments Hepatitis C Virus Screening 1969 HIV Screening 1982 DTaP/Tdap/Td Vaccines (1 - Tdap) 1988 Hepatitis B Vaccines (1 of 3 - 19+ 3-dose series) 1988 Colonoscopy 2014 Pneumococcal Vaccines 50+ (1 of 1 - PCV) 2019 Zoster (Shingles) Vaccine (1 of 2) 2019 Influenza Vaccine 04/04/2024 COVID-19 Vaccine (1 - 2023-2 5 season) 2024 Pneumococcal Vaccine: Pediat nicki (0-5 Years) and At-Risk Patients (6 to 49 Years) Aged Out No longer eligible b ased on patient's age to complete this topic
--- OUTSIDE RECORDS SUMMARY | 2024-09-30 18:29 | XMS_ITS ---
Author Name [facility] Organization Unknown Results Test Name/Text Value Interpretation Date Range Source [facility] GROSS DESCRIPTION Received in formalin. Dimensions: 3 x 3 x 1 mm, submitted in 1 cassette. Normal [id number] [facility] CLINICAL INFORMATION r/o KA vs verruca Normal [id number] [facility] Problems Problem Status Onset Date Problem Type Date of Resoluti on Source Hyperlipidemia active 2018-06-05 ProblemAct [facility] Immunizations Vaccine Date Source Lot Number Status COVID-19 mRNA (PFIZER) 01/26/2021 [facility] [id number] co mpleted COVID-19 mRNA (PFIZER) 01/05/2021 [facility] [id number] co mpleted
--- OUTSIDE RECORDS SUMMARY | 2024-09-30 18:29 | XMS_ITS | Patient Health Record ---
Author Organization [facility] Address [address] [place] [address] Care Team Providers Care Business Intelligence Analyst Name Role Phone Po Angelia LEACH Primary Care Provider Hamilton Mac [phone] ALLERGIES No Known Allergies REASON FOR REFERRAL No Information IMMUNIZATIONS Vaccine Route Administration Date Status Comme nts Influenza Unknown 12/09/2022 Refused SOCIAL HISTORY Tobacco Use: Social History Observation Description Date Details (start date - stop date) Never Smoker NA - NA Sex Assigned At : Social History Observation Description Sex Assigned At Unknown Tobacco Use/Smoking Question Answer Notes Patient is a nonsmoker Alcohol Screen Question Answer Notes Did you have a drink contain ing alcohol in the past year? Yes How often did you have a dri nk containing alcohol in the past year? Monthly or less (1 point) How many drinks did you have on a typical day when you were drinking in the past year? 1 or 2 drinks (0 point) How often did you have 6 or more drinks on one occasion in the past year? Never (0 point) Points 1 Interpretation Negative PROBLEMS Problem Type ICD Code Onset Dates Problem Status W/U Status Risk SNOMED Code Notes Problem Encounter for screening for malignant neoplasm of colon (Z12.11) Active confirmed 011248656 Problem Preprocedural examination (Z01.818) Active confirmed 320498590 Problem Family history of colon cancer (Z80.0) Active confirmed 227828544 Problem Diverticulosis of large intestine without perforation or abscess without bleeding (K57.30) Active confirmed Diverticul ar disease of colon (838947918) PLAN OF TREATMENT Future Test Test Name Order Date COLONOSCOPY 12/28/2017 COLONOSCOPY 12/09/2022 Insurance Providers Payer Name Payer Address Payer Phone Subscriber Number Group Number Insured Name Patient Relationship to Insured Coverage Start Date Coverage End Date [employer] [address] [address] [place] [address] [id number] [facility] Self - patient is the insured MEDICAL (GENERAL) HISTORY Medical History History ICD Code Denies VT,DM,CVA,Lung disease,renal dise ase A.fib - 2005--less then 24 hr Hx of kidney stone Hyperlipidemia Thalassemia--normal Hgb and normal Iron studies Negative screening colonoscopy in 02/2018 Surgical History Surgery Date(Month/Year) Tonsillectomy 1974
--- OUTSIDE RECORDS SUMMARY | 2024-09-30 18:29 | XMS_ITS | Clinical Summary ---
Author Organization [facility] Address [address] [place] [address] Care Team Providers Care Aerospace Medicine Physician Name Role Phone Angelia Sellers MD Primary Care Provider [phone] Allergies No known active allergies Medications atorvastatin (LIPITOR) 10 mg tablet Take 10 mg by mouth daily. Active Active Problems Problem Noted Date Diagnosed Date Hyperlipidemia 06/05/2018 Encounters Date Type Department Care Team Description 08/21/2024 11:30 AM EST [facility] Department of Dermatology [address] [place] [address] Alexei Small MD Neoplasm of unspecified behavior of bone, soft tissue, and skin (Primary Dx); Verruca vulgaris from Last 3 Months Immunizations Name Administration Dates Next Due COVID-19 mRNA (PFIZER) 01/26/2021,01/05/2021 Family History Medical History Relation Comments Basal cell carcinoma Father Relation Status Comments Father Social History Tobacco Use Types Packs/Day Years Used Date Smoking Tobacco: Never Smokeless Tobacco: Never Tobacco Cessation:Counseling Given: Not Answered Alcohol Use Standard Drinks/Week Comments Yes 0 (1 standard drink = 0.6 oz pur e alcohol) SOCIAL Sex and Gender Information Value Date Recorded Sex Assigned at Male 08/21/2024 11:34 AM EST Legal Sex Male 11:28 AM EDT Gender Identity Male 08/21/2024 11:34 AM EST Sexual Orientation Not on file Plan of Treatment Upcoming Encounters Date Type Department Care Team (Late st Contact Info) Description 10/07/2024 1:00 PM EST [facility] Visit [facility] Department of Dermatology [address] [place] [address] Alexei Small MD [address] [facility] [place] [place] [address] Health Maintenance Due Date Last Done Comments CT Colonography 1969 Colonoscopy 1969 Colorectal Cancer Screening 1969 FIT-DNA (Cologuard) 1969 FIT 1969 FOBT 1969 Flex Sigmoidoscopy - 5y 1969 HIV Screening 1969 DTaP,Tdap,and Td Vaccines (1 - Tdap) 1987 Hepatitis C Screening 1987 Hepatitis B Vaccines (1 of 3 - 19+ 3-dose series) 1988 Zoster Vaccines (1 of 2) 2019 COVID-19 Vaccine ( - 2023-2 5 season) 2024 01/26/2021, 01/05/2021 Influenza Vaccine (#1) 2024 HPV Vaccines Aged Out No longer eligi ble based on patient's age to complete this topic Hepatitis A Vaccines Aged Out No long er eligible based on patient's age to complete this topic MMR Vaccines Aged Out No longer eligi ble based on patient's age to complete this topic Meningococcal Vaccine Aged Out No mitch lorne eligible based on patient's age to complete this topic Pneumococcal Vaccine: Pediatrics (0 to 5 Years) and At-Risk Patients (6 to 64 Years) Aged Out No longer eligible b ased on patient's age to complete this topic Procedures Procedure Name Priority Date/Time Associated Diagnosis Comments DERMPATH SKIN Routine 08/21/2024 11:54 AM EST Neoplasm of unspecified behavior of bone, soft tissue, and skin from Last 3 Months Results * [facility] Skin (08/21/2024 11:54 AM EST) Case Report DERMATOPATHOLOGY ?Case: [id number] ? Authorizing Provider: ??Alexei Small MD ?Collected: ? 08/21/2024 1154 ? Ordering Location: ? [facility] Department of Received: ?08/21/2024 1154 ? Dermatology ? Pathologist: ? Mya King MD ? Specimen: ?Nose, Tip ? 4 11:51 AM EST [facility] DERMATOPATHOLOGY Final Diagnosis Digitate and endophytic keratinocytic proliferation, top of, see notes (D48.5) Only a portion of the lesion is available for examination. The lesion shows features of a verruca with features of a hyperplastic actinic keratosis. However, an underlying biologically more aggressive process, cannot be completely ruled out. Further ablative therapy is recommended. Multiple deeper sections were reviewed. The clinician was notified of this result. 4 11:51 AM EST [facility] DERMATOPATHOLOGY Clinical Information r/o KA vs verruca 12/27/202 4 11:51 AM EST [facility] DERMATOPATHOLOGY Gross Description Received in formalin. Dimensions: 3 x 3 x 1 mm, submitted in 1 cassette. 4 11:51 AM EST [facility] DERMATOPATHOLOGY Embedded Images 11:51 AM EST [facility] DERMATOPATHOLOGY Skin Structure of apex of nose / Unknown Non-blood Collection / Unknown 08/21/2024 11:54 AM EST 08/21/2024 11:54 AM EST Comment:Rule out KA vs Verru ca us Alexei Small MD LAB PATHOLOGY (NO SOURCE) Fi nal Result [facility] DERMATOPATHOLOGY [address] [place] [address], [place] [phone] from Last 3 Months Insurance ANTHEM - OUT OF STATE Care Teams Aerospace Medicine Physician Relationship Specialty Start Date End Date Angelia Sellers MD [address] [place] [address] [address] [place] [id number] PCP - General Primary Care 05/23/18
== END 2024-09-30 14:22 | disposition home or self-care (01) ==
PROVIDERS: PCP Internal Medicine; Visit Provider Internal Medicine
DX: Z00.00 Encounter for general adult medical examination without abnormal findings (principal); I48.91 Unspecified atrial fibrillation; D56.9 Thalassemia, unspecified; E78.00 Pure hypercholesterolemia, unspecified; D18.03 Hemangioma of intra-abdominal structures

== ENCOUNTER → 2024-09-30 13:52 | Outpatient (BNVA) | payer OTHER, SELFPAY | PROVIDERS: PCP Internal Medicine; Visit Provider Internal Medicine ==

== ENCOUNTER 2024-12-13 09:36 | Outpatient (REF) | payer OTHER, SELFPAY ==
--- NOTE | ~2024-12-13 | US_ITS ---
CLINICAL HISTORY: R79.89 - Other specified abnormal findings of blood chemistry ELEVATED LFTS, LIVER HEMANGIOMA US abdomen complete with duplex and color Doppler Comparison: US/SR - US ABDOMEN COMPLETE - 02/13/23 09:30 EDT Findings: The visualized pancreas, aorta, and inferior vena cava are unremarkable. Liver normal size and echotexture. Right lobe 14.6 cm length. Echogenic hepatic lesion right lobe measuring 6 x 5 x 6 mm, previously measuring 5 mm, probable hemangioma. Common duct 2.4 mm diameter. Physiologic distention of the gallbladder. No gallstones or sludge. No gallbladder wall thickening. No pericholecystic fluid. No sonographic Hodges sign. Main portal vein antegrade. Right kidney normal size, 11.2 cm in length. Normal cortical width and echotexture. No solid or cystic renal masses. No nephrolithiasis or hydronephrosis. Left kidney normal, 10.1 cm in length. Normal cortical width and echotexture. No solid or cystic renal masses. No hydronephrosis. Nonobstructing caliceal stones upper pole measuring 4 x 3 x 3 mm and lower pole measuring 4 x 3 x 6 mm, previously measuring 3 mm. Spleen measures 9.8 cm. No splenic masses. No ascites. No lymphadenopathy. Impression: 1. Probable hepatic hemangioma little changed. 2. Nephrolithiasis on the left. No evidence of obstructive uropathy. 3. Liver is normal in size and echotexture. This document has been electronically signed by: Jean Paul Peterson MD on 12/13/2024 11:33:03
--- OUTSIDE RECORDS SUMMARY | 2024-12-13 10:04 | XMS_ITS | Clinical Summary ---
Author Organization [facility] Address [address] [place] [address] Care Team Providers Care Manager Membership Name Role Phone Angelia Sellers MD Primary Care Provider [phone] Allergies No known active allergies Medications atorvastatin (LIPITOR) 10 mg tablet Take 10 mg by mouth daily. 11/19/19 25 Discontinu ed(Therapy completed) Active Problems Problem Noted Date Diagnosed Date Hyperlipidemia 06/05/2018 Encounters Date Type Department Care Team Description 10/07/2024 1:00 PM EST Office Visit [facility] Department of Dermatology [address] [place] [address] Alexei Small MD Neoplasm of unspecified behavior of bone, soft tissue, and skin (Primary Dx) from Last 3 Months Immunizations Immunization Administration Dates Next Due COVID-19 mRNA (PFIZER) [...] Care Team (Late st Contact Info) Description 12/18/2024 8:45 AM EDT Follow-Up [facility] Department of Dermatology [address] [place], [place] [id number] Alexei Small MD [address] [facility] DEPT OF DERMATOLOGY [place], [place] [address] 05/19/2025 11:15 AM EDT Follow-Up [facility] Department of Dermatology [address] [place] [address] Alexei Small MD [address] [facility] [place] [address] Health Maintenance Due Date Last Done Comments CT Colonography 1969 Colonoscopy 1969 Colorectal Cancer Screening 1969 FIT-DNA (Cologuard) 1969 FIT 1969 FOBT 1969 Flex Sigmoidoscopy - 5y 1969 HIV Screening 1969 DTaP,Tdap,and Td Vaccines (1 - Tdap) 1987 Hepatitis C Screening 1987 Hepatitis B Vaccines (1 of 3 - 19+ 3-dose series) 1988 Pneumococcal Vaccine, 50+ Years (1 of 1 - PCV) 2019 Zoster Vaccines (1 of 2) 2019 COVID-19 Vaccine (3 - 2023-2 5 season) 2024 01/26/2021, 01/05/2021 Influenza Vaccine (Season Ended) 2025 HPV Vaccines Aged Out No longer eligi [...] Date/Time Associated Diagnosis Comments DERMPATH SKIN Routine 10/07/2024 2:15 PM EST Neoplasm of unspecified behavior of bone, soft tissue, and skin from Last 3 Months Results * [facility] Skin (10/07/2024 2:15 PM EST) Case Report DERMATOPATHOLOGY ?Case: [id number] ? Authorizing Provider: ??Alexei Small MD ?Collected: ? 10/07/20241414 ? Ordering Location: ? [facility] Department of Received: ?10/07/20241414 ? Dermatology ? Pathologist: ? Mya King MD ? Specimen: ?Naris, Left ? 5 11:57 AM EST [facility] DERMATOPATHOLOGY Final Diagnosis Sebaceous gland hyperplasia, dermal fibrosis (L73.8) 5 11:57 AM EST [facility] DERMATOPATHOLOGY at 1157 EST Clinical Information Prior bx c/w digitate endophytic keratinocytic proliferation, [id number]; r/o SCC 5 11:57 AM EST [facility] DERMATOPATHOLOGY Gross Description Received in formalin. Dimensions: 3 x 3 x 3 mm, submitted in 1 cassette. 5 11:57 AM EST [facility] DERMATOPATHOLOGY Embedded Images 5 11:57 AM EST [facility] DERMATOPATHOLOGY Skin Both anterior nares / Unknown Non-blood Collection / Unknown 10/07/2024 2:15 PM EST 10/07/2024 2:15 PM EST Comment:Prior bx c/w digitat e endophytic keratinocytic proliferation, [id number], r/o SCC us Alexei Small MD LAB PATHOLOGY (NO SOURCE) Fi nal Result [facility] DERMATOPATHOLOGY [address] [place] [place] [phone], from Last 3 Months Insurance ANTHEM - OUT OF STATE Care Teams Manager Membership Relationship Specialty Start Date End Date Angelia Sellers MD [address] [place] [address] [place] [address] PCP - General Primary Care 05/23/18
--- OUTSIDE RECORDS SUMMARY | 2024-12-13 10:04 | XMS_ITS | Patient Health Record ---
Author Organization [facility] Address [address] [place] [address] Care Team Providers Care Consulting Database Administrator Name Role Phone Po Angelia LEACH Primary Care Provider Hamilton Mac [phone] Allergies No Known Allergies Reason For Referral No Information Immunizations Vaccine Route Administration Date Status Comme nts Influenza Unknown 12/09/2022 Refused Social History Tobacco Use: Social History Observation Description Date Details (start date - stop date) Never Smoker NA - NA Tobacco Use/Smoking Question Answer Notes Patient is [...] Never (0 point) Points 1 Interpretation Negative Section Notes: Nonsmoker; no sig alcohol Nonsmoker; no sig alcohol Problems Problem Type SNOMED Code ICD Code Onset Dates Problem Status W/U Status Risk Notes Problem 078718233 Encounter for screening for malignant neoplasm of colon (Z12.11) Active confirmed Problem Diverticular disease of colon (400429251) Diverticulosis of large intestine without perforation or abscess without bleeding (K57.30) Active confirmed Problem 344729590 Preprocedural examination (Z01.818) Active confirmed Problem 391284096 Family history o f colon cancer (Z80.0) Active confirmed Plan Of Treatment Future Test Test Name Order Date COLONOSCOPY 12/28/2017 COLONOSCOPY 12/09/2022 Insurance Providers Payer Name Payer Address Payer Phone Subscriber Number Group Number Insured Name Patient Relationship to Insured Coverage Start Date Coverage End Date [employer] [address] [address] [place] [address] [id number] [facility] VICKI Self - patient is the insured Medical (General) History Medical History History ICD Code Denies IA,DM,CVA,Lung disease,renal dise ase A.fib - 2005--less then 24 hr Hx of kidney stone Hyperlipidemia Thalassemia--normal Hgb and normal Iron studies Negative screening colonoscopy in 02/2018 Surgical History Surgery Date(Month/Year) Tonsillectomy 1974
--- OUTSIDE RECORDS SUMMARY | 2024-12-13 10:04 | XMS_ITS | Clinical Summary ---
Author Organization [facility] Address [address] [place] [address] Care Team Providers Care Emergency Room Orderly Name Role Phone Unavailable Primary Care Provider [...]
--- OUTSIDE RECORDS SUMMARY | 2024-12-13 10:04 | XMS_ITS | Clinical Summary ---
Author Organization [facility] Address [address] [place] [address] Care Team Providers Care Collision Technician Name Role Phone Unavailable Primary Care Provider Unavailabl e Social History Tobacco Use Types Packs/Day Years Used Date Smoking Tobacco: Never Assessed Sex and Gender Information Value Date Recorded Sex Assigned at Not on file Gender Identity Not on file Sexual Orientation Not on file Plan of Treatment Not on file
[2024-12-13 10:33] LABS: MANUAL DIFF FLAG NO
[2024-12-13 10:44] LABS: Basophils Absolute Auto 0.1 X10*3/uL (0.0-0.2); Basophils Percent Auto 0.8 % (0-2); Eosinophils Absolute Auto 0.1 X10*3/uL (0.0-0.4); Eosinophils Percent Auto 1.1 % (0-4); Hematocrit 43.6 % (42.0-52.0); Imm Gran Abs Auto 0.02 X10*3/uL (0.00-0.03); Imm Gran Pct Auto 0.3 % (0.0-0.4); Lymphocytes Absolute Auto 2.4 X10*3/uL (1.2-4.9); Lymphocytes Percent Auto 38.4 % (20-40); Mean Corpuscular HGB Conc 32.1 g/dl (31.0-36.0); Mean Corpuscular Hemoglobin 22.8 pg (27.0-33.0); Mean Corpuscular Volume 70.9 fL (80.0-98.0); Mean Platelet Volume 10.1 fL (9.4-12.4); Monocytes Absolute Auto 0.6 X10*3/uL (0.1-1.2); Monocytes Percent Auto 9.7 % (2-11); Neutrophils Absolute Auto 3.1 x10*3/uL (2.0-8.3); Neutrophils Percent Auto 49.7 % (45-73); Platelet Count 179 X10*3/uL (160-400); Red Blood Count 6.15 X10*6/uL (4.60-5.80); Red Cell Distribution Width 15.9 % (11.0-16.0); White Blood Count 6.3 X10*3/uL (4.8-10.8)
[2024-12-13 11:24] LABS: Alanine Aminotransferase 48 U/L (0-40); Albumin Level 4.3 g/dL (3.5-5.0); Alkaline Phosphatase 59 U/L (39-117); Anion Gap 11 (12-20); Aspartate Amino Transferase 46 U/L (5-37); Bilirubin Total 1.3 mg/dL (0.0-1.0); Blood Urea Nitrogen 23 mg/dL (9-16); Calcium 9.5 mg/dL (8.4-10.2); Carbon Dioxide 29 mmol/L (22-29); Chloride 105 mmol/L (96-108); Cholesterol 219 mg/dL (<200); Estimated Glomerular Filt Rate > 60; Glucose Random 92 mg/dL (60-115); HDL Cholesterol 67 mg/dL (>40); LDL Cholesterol Calculated 139 mg/dL (<100); Potassium 5.1 mmol/L (3.3-5.1); Sodium 140 mmol/L (135-145); Total Protein 7.1 g/dL (6.5-8.0); Triglycerides 69 mg/dL (<150)
[2024-12-13 11:47] LABS: Free T4 (Free Thyroxine) 0.92 ng/dL (0.71-1.85); Thyroid Stimulating Hormone 1.24 uIU/mL (0.32-4.0)
[2024-12-13 11:51] LABS: Folate 11.3 ng/mL (> or = 4.0); Prostate Specific Antigen Scr 1.72 ng/mL (<0.05-4.0); Vitamin B12 1237 pg/mL (200-900)
== END 2024-12-13 09:37 | disposition home or self-care (01) ==
LOC: HO.US 09:36
PROVIDERS: PCP Internal Medicine; Visit Provider Internal Medicine
DX: R79.89 Other specified abnormal findings of blood chemistry (principal); D18.03 Hemangioma of intra-abdominal structures; E78.00 Pure hypercholesterolemia, unspecified; Z12.5 Encounter for screening for malignant neoplasm of prostate
CPT/HCPCS: 36415; 76700; 80053; 80061; 82607; 82746; 84153; 84439; 84443; 85025

== ENCOUNTER → 2024-12-13 09:37 | Outpatient (BNV) | payer OTHER, SELFPAY | PROVIDERS: PCP Internal Medicine; Visit Provider Radiology Diagnostic Radiology | DX: D18.03 Hemangioma of intra-abdominal structures (principal) | CPT/HCPCS: 76700 ==